=== PATIENT | female | born 1970 | race Caucasian/White ===

== ENCOUNTER 2022-06-19 14:22 | Inpatient (IN) | payer OTHER, SELFPAY ==
[2022-06-19 14:22] VITALS: BP 116/77; PULSE 68; RESP 16; TEMP 36.6; O2SAT 97
[2022-06-19 14:25] VITALS: BMI 28.0
[2022-06-19 17:50] LABS: Glucose Point of Care 87 mg/dL (70-110)
[2022-06-19] MEDS: metformin 500 mg Tablet 1000 MG PO (18:36)
[2022-06-19 20:13] LABS: Glucose Point of Care 192 mg/dL (70-110)
[2022-06-19] MEDS: hyDROXYzine 25 mg Capsule 50 MG PO (20:29)
[2022-06-19] MEDS: trazodone 50 mg Tablet PO (20:29)
[2022-06-19] MEDS: atorvastatin 40 mg Tablet 80 MG PO (20:29)
--- NOTE | 2022-06-19 20:40 | PC.NURSE ---
PRN trazodone for sleep and vistaril for anxiety given as ordered per pt request.
[2022-06-19 22:00] VITALS: BP 125/78; PULSE 79; RESP 16; TEMP 36.4; O2SAT 96
[2022-06-20 06:00] VITALS: BP 108/55; PULSE 61; RESP 15; TEMP 36.4; O2SAT 95
[2022-06-20 08:11] LABS: Glucose Point of Care 136 mg/dL (70-110)
[2022-06-20] MEDS: duloxetine 60 mg Capsule 120 MG PO (08:42)
[2022-06-20] MEDS: metformin 500 mg Tablet 1000 MG PO ×2 (08:43→18:33)
[2022-06-20] MEDS: hydroCHLOROthiazide 25 mg Tablet PO (08:43)
[2022-06-20] MEDS: pantoprazole DR 40 mg Tablet PO (08:43)
--- NOTE | 2022-06-20 08:58 | PC.OT ---
OT EVALUATION ATTEMPTED; PATIENT WAITING ON MEDS FROM NURSE AND THEN IN SHOWER AT SECOND ATTEMPT. WILL ATTEMPT AGAIN THIS AFTERNOON.
[2022-06-20] MEDS: acetaminophen 325 mg Tablet 650 MG PO (11:50)
[2022-06-20 12:28] LABS: Glucose Point of Care 118 mg/dL (70-110)
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
[2022-06-20 14:00] VITALS: BP 127/65; PULSE 84; RESP 18; TEMP 36.6; O2SAT 98
[2022-06-20 17:37] LABS: Glucose Point of Care 123 mg/dL (70-110)
[2022-06-20 19:55] LABS: Glucose Point of Care 164 mg/dL (70-110)
[2022-06-20] MEDS: hyDROXYzine 25 mg Capsule 50 MG PO (20:22)
[2022-06-20] MEDS: atorvastatin 40 mg Tablet 80 MG PO (20:22)
[2022-06-20] MEDS: trazodone 50 mg Tablet PO (20:23)
--- NOTE | 2022-06-20 20:25 | PC.NURSE ---
PRN trazodone for sleep and vistaril for anxiety given as ordered per pt request.
[2022-06-20 22:00] VITALS: BP 122/74; PULSE 75; RESP 18; TEMP 36.6; O2SAT 96
[2022-06-21 06:20] VITALS: BP 93/56; PULSE 55; RESP 17; TEMP 36.9; O2SAT 94
[2022-06-21] MEDS: pantoprazole DR 40 mg Tablet PO (10:11)
[2022-06-21] MEDS: duloxetine 60 mg Capsule 120 MG PO (10:11)
[2022-06-21] MEDS: metformin 500 mg Tablet 1000 MG PO (10:11)
[2022-06-21] MEDS: hydroCHLOROthiazide 25 mg Tablet PO (10:12)
[2022-06-21 12:06] LABS: Glucose Point of Care 141 mg/dL (70-110)
[2022-06-21 14:00] VITALS: BP 106/67; PULSE 81; RESP 18; TEMP 36.7; O2SAT 95
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
[2022-06-21 17:09] VITALS: BP 106/67; PULSE 81; RESP 18; TEMP 36.7; O2SAT 95
== END 2022-06-21 17:24 | disposition home or self-care (01) | DRG 885 ==
PROVIDERS: Admitting Provider Psychiatry & Neurology Psychiatry; Visit Provider Psychiatry & Neurology Psychiatry
DX: F33.9 Major depressive disorder, recurrent, unspecified (principal); R45.851 Suicidal ideations; F10.129 Alcohol abuse with intoxication, unspecified; G47.419 Narcolepsy without cataplexy; E11.9 Type 2 diabetes mellitus without complications; Z63.0 Problems in relationship with spouse or partner; Z81.8 Family history of other mental and behavioral disorders; Z79.84 Long term (current) use of oral hypoglycemic drugs; Z79.85 Long-term (current) use of injectable non-insulin antidiabetic drugs; Z91.51 Personal history of suicidal behavior
CPT/HCPCS: 36416; 82962; 97150; 97165